=== PATIENT | male | born 1970 | race Asian ===

== ENCOUNTER 2022-04-27 04:13 | Day surgery (SDC) | payer OTHER ==
[2022-04-26 10:31] VITALS: BMI 21.7
[2022-04-27] MEDS ORDERED: MIDAZOLAM HCL 2 MG/2 ML SINGLE DOSE VIAL ONE (08:31)
[2022-04-27] MEDS ORDERED: FENTANYL CITRATE/PF 50 MCG/ML VIAL ONE ×3 (08:31→08:46)
[2022-04-27] MEDS ORDERED: DEXTROSE 5%-0.45% SALINE 1,000 ML IV SCH (08:45)
[2022-04-27 10:48] VITALS: PULSE 60; TEMP 97.4
[2022-04-27 10:51] VITALS: BP 140/88; RESP 18
== END 2022-04-27 11:00 | disposition home or self-care (01) ==
LOC: JASU-SURG 04:13
PROVIDERS: ATTEND Urology
PROC: 0TF6XZZ Fragmentation in Right Ureter, External Approach (ICD-10-PCS; principal; 2022-04-27 08:15)
DX: N20.1 Calculus of ureter (principal)

== ENCOUNTER 2023-10-14 07:57 | Emergency (ER) | payer OTHER ==
[2023-10-14 08:09] VITALS: BP 143/87; PULSE 62; RESP 19; TEMP 98.1; BMI 22.2
== END 2023-10-14 08:26 | disposition home or self-care (01) ==
LOC: FER 07:57
DX: R05.9 Cough, unspecified (principal); J06.9 Acute upper respiratory infection, unspecified; R06.02 Shortness of breath
CPT/HCPCS: 99283-25